=== PATIENT | male | born 1955 | race Caucasian/White ===

== ENCOUNTER 2023-05-01 08:19 | Outpatient (REF) | payer MEDICARE, SELFPAY | END 2023-05-01 08:20 | disposition home or self-care (01) | LOC: HO.BBR 08:19 | PROVIDERS: PCP Internal Medicine; Visit Provider Urology | DX: D75.1 Secondary polycythemia (principal) | CPT/HCPCS: 85018; 99195 ==

== ENCOUNTER 2023-07-31 08:56 | Outpatient (REF) | payer MEDICARE, SELFPAY | END 2023-07-31 08:57 | disposition home or self-care (01) | LOC: HO.BBR 08:56 | PROVIDERS: PCP Internal Medicine; Visit Provider Urology | DX: D75.1 Secondary polycythemia (principal) | CPT/HCPCS: 85018; 99195 ==

== ENCOUNTER 2023-10-30 08:04 | Outpatient (REF) | payer MEDICARE, SELFPAY | END 2023-10-30 08:05 | disposition home or self-care (01) | LOC: HO.BBR 08:04 | PROVIDERS: PCP Internal Medicine; Visit Provider Urology | DX: D75.1 Secondary polycythemia (principal) | CPT/HCPCS: 85014; 85018; 99195 ==

== ENCOUNTER 2024-01-29 12:04 | Outpatient (REF) | payer MEDICARE, SELFPAY | END 2024-01-29 12:05 | disposition home or self-care (01) | LOC: HO.BBR 12:04 | PROVIDERS: PCP Internal Medicine; Visit Provider Urology | DX: D75.1 Secondary polycythemia (principal) | CPT/HCPCS: 85014; 85018; 99195 ==

== ENCOUNTER 2024-04-24 08:09 | Outpatient (REF) | payer MEDICARE, SELFPAY | END 2024-04-24 08:10 | disposition home or self-care (01) | LOC: HO.BBR 08:09 | PROVIDERS: PCP Internal Medicine; Visit Provider Urology | DX: D75.1 Secondary polycythemia (principal) | CPT/HCPCS: 85018; 99195 ==